=== PATIENT | male | born 1970 | race Caucasian/White ===

== ENCOUNTER 2016-10-05 02:31 | Inpatient (IN) | payer OTHER ==
[~2016-10-05] VITALS: Ht 185.4 cm; Wt 101.2 kg
[2016-10-05] VITALS (22 sets, daily range): BP systolic 94–134; BP diastolic 53–81
[2016-10-05] MEDS ORDERED: FAMOTIDINE 20 MG/2 ML VIAL IVP ONE (03:15)
[2016-10-05] MEDS ORDERED: MORPHINE SULFATE 4 MG/ML DISP.SYRIN. IV ONE (03:15)
[2016-10-05] MEDS ORDERED: IV NORMAL SALINE 1000ML BAG 1,000 ML IV SCH ×4 (03:15→07:51)
[2016-10-05] MEDS ORDERED: ONDANSETRON PF 4 MG/2 ML VIAL. IV ONE (03:15)
--- NOTE | 2016-10-05 03:19 | PHYS DOC ---
Past Medical History Past Medical History: Diabetes-Type II Past Surgical History: Other Additional Past Surgical Histo: LASIC Alcohol Use: Occasionally Drug Use: None Adult General Chief Complaint Chief Complaint: NAUSEA/VOMITING/DIARRHA HPI HPI Patient is a 46 year old male who presents with vomiting, chills, upper abdominal pain. Patient reports symptoms started about 12 hours ago. He says he thinks he his ribs from repeated vomiting (emesis x15 over 12 hrs). He also reports couple episodes of diarrhea as well as chills. He has taken some ibuprofen at home with insufficient relief. No other acute complaints. Review of Systems Review of Systems Constitutional: Chills Eyes: Denies change in visual acuity or eye pain HENT: Denies nasal congestion or sore throat Respiratory: Denies cough or shortness of breath Cardiovascular: Denies chest pain GI: Epigastric abdominal pain, nausea, vomiting, diarrhea. Denies bloody stools : Denies dysuria or hematuria Musculoskeletal: Denies back pain or joint pain Integument: Denies rash or skin lesions Neurologic: Denies headache, focal weakness or sensory changes Current Medications Current Medications Current Medications Medications (Trade) Dose Ordered Sig/Mary Start Time Stop Time Status Last Admin Dose Admin Famotidine (Pepcid) 20 mg 1X ONCE 10/05/16 03:15 10/05/16 03:16 DC 10/05/16 03:22 20 MG Insulin Human Regular 150 unit/ Sodium Chloride 151.5 ml @ 0 mls/hr CONT PRN PRN 10/05/16 04:00 10/05/16 05:29 10.2 MLS/HR Morphine Sulfate 4 mg 4 mg 1X ONCE 10/05/16 03:15 10/05/16 03:16 DC 10/05/16 03:23 4 MG Ondansetron HCl (Zofran) 4 mg 1X ONCE 10/05/16 03:15 10/05/16 03:16 DC 10/05/16 03:22 4 MG Potassium Chloride (KCl Premix 10meq) 100 ml @ 100 mls/hr PRN Q1HR PRN 10/05/16 04:00 Sodium Chloride 1,000 ml @ 1,000 mls/hr Q1H 10/05/16 04:00 10/05/16 04:07 DC 10/05/16 05:28 1,000 MLS/HR Sodium Chloride (Iv Sodium Chloride 0.9% 1000ml Bag) 1,000 ml @ 1,000 mls/hr Q1H 10/05/16 03:15 10/05/16 04:14 DC 10/05/16 03:23 1,000 MLS/HR Allergies Allergies Allergies Coded Allergies Type Severity Reaction Last Updated Verified Sulfa (Sulfonamide Antibiotics) Allergy Unknown 10/05/16 Yes Physical Exam Physical Exam Constitutional: Well developed, well nourished, uncomfortable HENT: Normocephalic, atraumatic, bilateral external ears normal Eyes: EOMI, conjunctiva normal, no discharge Neck: Normal range of motion, no stridor Cardiovascular: Tachycardic, regular rhythm, no murmur Lungs & Thorax: Bilateral breath sounds clear to auscultation Abdomen: Bowel sounds normal, soft, non-distended, epigastric/LUQ TTP without guarding or rebound Skin: Warm, dry, no erythema, no rash Extremities: No obvious deformity, no edema Neurologic: Alert and oriented X 3, no gross deficits noted Current Patient Data Vital Signs Vital Signs Date Time Temp Pulse Resp B/P Pulse Ox O2 Delivery O2 Flow Rate FiO2 10/05/16 04:00 96 99 Room Air 10/05/16 03:30 115/65 10/05/16 03:23 24 10/05/16 02:40 97.7 97.7 Lab Values Laboratory Tests Test 10/05/16 03:22 10/05/16 03:27 POC Venous pH 6.90 (7.32-7.42) L POC Venous pCO2 25mmHg (41-51) L POC Venous pO2 56mmHg (20-40) H Venous Blood HCO3 5mmol/L (24-28) L POC Venous O2 Saturation (Elaina) 66% POC FiO2 21.0 White Blood Count 21.3x10^3/uL (4.0-11.0) H Red Blood Count 4.96x10^6/uL (4.30-5.70) Hemoglobin 15.0g/dL (13.0-17.5) Hematocrit 48.0% (39.0-53.0) Mean Corpuscular Volume 97fL (79-100) Mean Corpuscular Hemoglobin 30pg (25-35) Mean Corpuscular Hemoglobin Concent 31g/dL (31-37) Red Cell Distribution Width 14.5% (11.5-14.5) Platelet Count 286x10^3/uL (140-400) Neutrophils (%) (Auto) 87% (31-73) H Lymphocytes (%) (Auto) 4% (24-48) L Monocytes (%) (Auto) 8% (0-9) Eosinophils (%) (Auto) 0% (0-3) Basophils (%) (Auto) 0% (0-3) Neutrophils # (Auto) 18.6x10^3uL (1.8-7.7) H Lymphocytes # (Auto) 0.9x10^3/uL (1.0-4.8) L Monocytes # (Auto) 1.7x10^3/uL (0.0-1.1) H Eosinophils # (Auto) 0.0x10^3/uL (0.0-0.7) Basophils # (Auto) 0.1x10^3/uL (0.0-0.2) Segmented Neutrophils % 87% (35-66) H Band Neutrophils % 1% (0-9) Lymphocytes % 4% (24-48) L Monocytes % 7% (0-10) Myelocytes % 1% (0-0) H Toxic Granulation Slight Platelet Estimate Adequate (ADEQUATE) Sodium Level 139mmol/L (136-145) Potassium Level 6.9mmol/L (3.5-5.1) *H Chloride Level 99mmol/L (98-107) Carbon Dioxide Level 8mmol/L (21-32) *L Anion Gap 32 (6-14) H Blood Urea Nitrogen 34mg/dL (8-26) H Creatinine 2.2mg/dL (0.7-1.3) H Estimated GFR (Cockcroft-Gault) 32.1 BUN/Creatinine Ratio 15 (6-20) Glucose Level 583mg/dL (70-99) *H Calcium Level 9.9mg/dL (8.5-10.1) Phosphorus Level 9.3mg/dL (2.6-4.7) H Magnesium Level 2.7mg/dL (1.8-2.4) H Total Bilirubin 0.5mg/dL (0.2-1.0) Aspartate Amino Transferase (AST) 26U/L (15-37) Alanine Aminotransferase (ALT) 58U/L (16-63) Alkaline Phosphatase 113U/L (46-116) Total Protein 8.8g/dL (6.4-8.2) H Albumin 4.4g/dL (3.4-5.0) Albumin/Globulin Ratio 1.0 (1.0-1.7) Lipase 1308U/L (73-393) H Laboratory Tests 10/05/16 03:27 Laboratory Tests 10/05/16 03:27 EKG EKG EKG (my read): sinus rhythm, rate 107, borderline LAD, Radiology/Procedures Radiology/Procedures X-ray L ribs and PA chest (my read): No acute abnormality Course & Med Decision Making Course & Med Decision Making Pertinent Labs and Imaging studies reviewed. (See chart for details) Patient is 46-year-old male who presents with epigastric pain, nausea/vomiting. Pain that he believes due to his ribs I believe is actually in his abdomen. Regardless will check x-ray of left ribs and PA chest. Labs ordered to evaluate. IV fluids, nausea medication, pain medication ordered for relief of symptoms. Labs notable for blood glucose 538, bicarb 8, anion gap 32, lipase 1308, potassium 6.9. Additional fluids and insulin drip ordered. Calcium gluconate ordered for hyperkalemia. Discussed with Dr. España, per his recommendation will give dose of kayexelate as well and will recheck BMP in 4 hours. Discussed results with patient. Discussed with Dr. Pickett, will admit under his care for further evaluation and treatment. Critical care time: 35 minutes critical care time spent with this patient. This does not include any time spent on procedures. Dragon Disclaimer Dragon Disclaimer This electronic medical record was generated, in whole or in part, using a voice recognition dictation system. Departure Departure Impression: Primary Impression: DKA (diabetic ketoacidosis) Additional Impressions: Pancreatitis Hyperkalemia Disposition: ADMITTED INPATIENT Admitting Physician: Malorie Pickett Condition: GUARDED Problem Qualifiers ABELARDO PRUITT MD Oct 05, 2016 03:19
[2016-10-05 03:34] LABS: BASO # 0.1 x10^3/uL (0.0-0.2); BASO % 0 % (0-3); EOS % 0 % (0-3); LYMPH # 0.9 x10^3/uL (1.0-4.8); LYMPH % 4 % (24-48); MEAN CORPUSCULAR HEMOGLOBIN 30 pg (25-35); MEAN CORPUSCULAR HGB CONC 31 g/dL (31-37); MEAN CORPUSCULAR VOLUME 97 fL (79-100); MONO % 8 % (0-9); NEUT % 87 % (31-73); PLATELET COUNT 286 x10^3/uL (140-400); RED BLOOD COUNT 4.96 x10^6/uL (4.30-5.70); RED CELL DISTRIBUTION WIDTH 14.5 % (11.5-14.5); WHITE BLOOD COUNT 21.3 x10^3/uL (4.0-11.0)
[2016-10-05 03:49] LABS: ALBUMIN 4.4 g/dL (3.4-5.0); CALCIUM 9.9 mg/dL (8.5-10.1); CREATININE 2.2 mg/dL (0.7-1.3); GFR 32.1; TOTAL BILIRUBIN 0.5 mg/dL (0.2-1.0); TOTAL PROTEIN 8.8 g/dL (6.4-8.2)
[2016-10-05 03:51] LABS: POTASSIUM 6.9 mmol/L (3.5-5.1)
[2016-10-05] MEDS ORDERED: POTASSIUM CHLORIDE 10MEQ 100 ML IV PRN ×3 (04:00)
[2016-10-05] MEDS ORDERED: INSULIN REGULAR VIAL 150 UNIT in 0.9 % SODIUM CHLORIDE 150ML 150 ML IV PRN (04:00)
[2016-10-05] MEDS ORDERED: MORPHINE SULFATE 4 MG/ML DISP.SYRIN. IV PRN (04:15)
[2016-10-05] MEDS ORDERED: ACETAMINOPHEN 325 MG TABLET. PO PRN (04:15)
[2016-10-05] MEDS ORDERED: CALCIUM GLUCONATE 1,000 MG/10 ML VIAL IVP ONE (04:15)
[2016-10-05] MEDS ORDERED: ONDANSETRON PF 4 MG/2 ML VIAL. IV PRN (04:15)
[2016-10-05 04:29] LABS: ISTAT BE VENOUS -28 mmol/L (0-3); ISTAT HCO3 VEN 5 mmol/L (24-28); ISTAT PCO2 VEN 25 mmHg (41-51); ISTAT PO2 VEN 56 mmHg (20-40); ISTAT SAT O2 VEN 66 %; ISTAT TCO2 VEN 6 mmol/L (21-32); TOSPEC VEN
[2016-10-05] MEDS ORDERED: SODIUM POLYSTYRENE SULFONATE 15 GM/60 ML ORAL.SUSP. PO ONE (04:45)
[2016-10-05 05:02] LABS: PLT ESTIMATE ADEQUATE (ADEQUATE); TOXIC GRANULATION SLIGHT
[2016-10-05] MEDS ORDERED: INSU100I13 SQ (05:14)
[2016-10-05] MEDS ORDERED: INSU100I17 SQ (05:20)
[2016-10-05 05:56] LABS: MAGNESIUM 2.8 mg/dL (1.8-2.4); PHOSPHORUS 8.8 mg/dL (2.6-4.7)
[2016-10-05] MEDS ORDERED: SODIUM BICARBONATE VIAL 50 MEQ in IV 1/2 NORMAL SALINE 1,000 ML IV SCH (06:15)
--- NOTE | 2016-10-05 06:19 | EKG ---
[facility] [address] [place] [address] Test Date: 2016-10-05 Test Time: 04:13:13 Pat Name: LESLIE SIDDIQUI Department: Room: 105 1 Gender: M [employer]essionals: : 1970 Requested By: ABELARDO PRUITT Order Number: [id number] Reading MD: Lynda Gray Measurements Intervals [place] Rate: 107 P: 62 MD: 134 QRS: -1 QRSD: 102 T: 61 QT: 338 QTc: 457 Interpretive Statements SINUS TACHYCARDIA LEFTWARD AXIS RI6.01 Unconfirmed report No previous ECG available for comparison Electronically Signed On 10-07-2016 10:48:24 CDT by Lynda Gray
[2016-10-05 07:00] LABS: CREATININE 2.2 mg/dL (0.7-1.3); GFR 32.1
[2016-10-05 07:07] LABS: POTASSIUM 6.8 mmol/L (3.5-5.1)
--- NOTE | 2016-10-05 07:12 | RAD ---
Indication: Left lower rib pain. Technique: Left rib series with PA chest radiograph contains 5 images. No comparison is available. Findings: The lungs are clear. There is no pneumothorax or pleural fluid. Cardiomediastinal silhouette is within normal limits. A displaced rib fracture or osseous lesion is not identified. Impression: Negative for displaced rib fracture.
[2016-10-05] MEDS ORDERED: IV DEXTROSE 5 %-0.45 % NACL 1,000 ML IV SCH (07:51)
[2016-10-05] MEDS ORDERED: IV DEXTROSE 5 %-0.45 % NACL 1,000 ML IV PRN (07:53)
[2016-10-05] MEDS ORDERED: IV 1/2 NORMAL SALINE 1,000 ML IV PRN (08:00)
[2016-10-05] MEDS ORDERED: SODIUM BICARBONATE VIAL 100 MEQ in IV DEXTROSE 5% 1,000 ML IV PRN (09:00)
--- NOTE | 2016-10-05 09:02 | ACF ---
Admission Forms Criteria PANCREATITIS Clinical Indications for Admission to Inpatient Care (Place 'X' for any and all applicable criteria): Admission is indicated for ANY ONE of the following (1)(2)(3)(4): [X]I. Acute pancreatitis[A] as indicated by 2 or more of the following: [X]a) Abdominal pain (eg, epigastric, left upper quadrant) [X]b) Serum amylase or serum lipase greater than 3 times the upper limit of normal [ ]c) Characteristic findings from abdominal imaging (eg, pancreatic inflammation, pancreatic necrosis, peripancreatic fluid collection)[B] [ ]II. Pancreatitis (acute or chronic ) requiring inpatient care as indicated by 1 or more of the following : [ ]a) Inability to maintain oral hydration Hypoxemia [ ]b) Evidence of infection (eg, fever, peripancreatic abscess) [ ]c) Severe pain requiring acute inpatient management [ ]d) Hemodynamic instability [ ]e) Hypoxemia [ ]f) Acute renal failure [ ]g) Severe electrolyte abnormalities Extended stay beyond goal length of stay may be needed for (1)(11) [ ]a) Severe acute pancreatitis (10)(19) [ ]b) Persistent symptoms, ascites, or pleural effusion [ ]c) Abdominal compartment syndrome (10) [ ]d) Late complications [ ]e) Acute renal failure (27) [ ]f) Gallstones in gallbladder The original [employer] content created by [employer] has been revised. The portions of the content which have been revised are identified through the use of italic text or in bold,and [facility] has neither reviewed nor approved the modified material.All other unmodified content is copyright [facility]. Please see references footnoted in the original [email or web address] edition 2016 Admission Criteria Met?: Yes SARAI SIMPSON Oct 05, 2016 09:02
--- NOTE | 2016-10-05 11:06 | HP ---
ADMIT DATE: 10/05/2016 CHIEF COMPLAINT: Nausea and vomiting. HISTORY OF PRESENT ILLNESS: The patient is a 46-year-old gentleman with known history of diabetes mellitus who presented to the Emergency Room in the histology manager hours with 12-hour history of nausea and vomiting. He related that he was feeling poorly yesterday morning, but went out with his son sonia jacome. 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 Over the next 12 hours, he vomited about 15 times, had diarrhea x 2. Denies any fevers or chills, but did develop abdominal pain in the left upper quadrant, which was severe and gave him difficulties breathing. He therefore decided to present to the Emergency Room rather than waiting for the histology manager hours as he initially had intended. Pain currently is much better controlled. Breathing is improved. He denies any sick contacts. Never had symptoms like this before. PAST MEDICAL HISTORY: Diabetes mellitus x 9 years. FAMILY HISTORY: Positive for brother having been diagnosed, one year prior to pt's diagnosis, with DM. SOCIAL HISTORY: , lives by himself, but has two teenage children every other week. Drinks beer 4 times a week socially, 4-8 drinks each time, smokes only occasionally. Denies any drugs. ALLERGIES: SULFA. HOME MEDICATIONS: Reconciled with MAR. REVIEW OF SYSTEMS: Essentially positive as per HPI. He overall feels tired, generalized fatigue, but no focal aches or pains at current time. Rest of organ system review is negative. PHYSICAL EXAMINATION: VITAL SIGNS: Show blood pressure of 108/67, heart rate of 104, respiratory rate at 24. He is afebrile. GENERAL: This is a well-nourished, 46-year-old gentleman, alert and oriented, in no acute distress. HEENT: Shows no scleral icterus. NECK: Supple, without any lymphadenopathy. LUNGS: Clear bilaterally. CARDIOVASCULAR: Heart is regular rate and rhythm. ABDOMEN: Has positive bowel sounds, soft, without any tenderness to palpation. EXTREMITIES: Show no edema. SKIN: Warm, soft and dry without any rash. NEUROLOGIC: He appears grossly intact. LABORATORY DATA: CBC with a WBC of 21.3, 87% neutrophils, 1% band, hemoglobin at 15, platelets at 286. Chemistries at admission with a BUN and creatinine of 34 and 2.2 and 4 hours later at 38 and 2.2. Electrolytes with a sodium of 139; potassium 3.9; bicarbonate at 8, which 4 hours later is essentially unchanged; glucose at admission 583, on insulin drip, now 328; phosphorus at 8.8; magnesium at 2.8. IMAGING DATA: Rib x-rays essentially negative for displaced or broken ribs. ASSESSMENT AND PLAN: The patient is a 46-year-old diabetic who presents with nausea and vomiting, deranged electrolytes, and metabolic acidosis. He has been started on a bicarbonate drip. We will monitor his ABGs and chemistries closely. Renal consult will be obtained. It is unclear if this is secondary to his vomiting, although somewhat incongruent with his hyperkalemia. The patient also has pancreatitis and once again this is unclear if it is a primary or a secondary. DKA is present as well. He will be kept in the ICU. Currently on insulin drip until his gap closes. Pancreatitis at least symptomatically seems to have improved. We will start clear liquids. A Renal consult will be obtained. We will follow closely. NAZANIN GRAHAM MD DR: SHWETA/nts JOB#: [id number] / [id number] BER
--- NOTE | 2016-10-05 11:19 | PDOC2 ---
CONSULT Date of Consult Date of Consult DATE: 10/05/16 TIME: 11:15 Reason for Consult Reason for Consult: CAROLYN Referring Physician Referring Physician: ELIZA Identification/Chief Complaint Chief Complaint ABD PAIN, WEAKNESS Source Source: Chart review, Patient History of Present Illness Reason for Visit: THIS IS A 46 YR OLD ADMITTED WITH WEAKNESS AND ABD PAIN. HE HAS BEEN DX WITH DKA AND PANCREATITIS. HE DOES HAVE HEAVY ETOH INTAKE HX. NO CKD NOTED. HE HAS HAD N/V/D ALONG WITH POLYURIA AND POLYDYPSIA Past Medical History Cardiovascular: HTN GI: Constipation Endocrine: Diabetes Current Problem List Problem List Problems Medical Problems: (1) DKA (diabetic ketoacidosis) Status: Acute (2) Hyperkalemia Status: Acute (3) Pancreatitis Status: Acute Current Medications Current Medications Current Medications Sodium Chloride (Iv Sodium Chloride 0.9% 1000ml Bag) 1,000 ml @ 1,000 mls/hr Q1H IV Last administered on 10/05/16 03:23; Start 10/05/16 at 03:15; Stop at 04:14; Status DC Ondansetron HCl (Zofran) 4 mg 1X ONCE IV Last administered on 10/05/16 03:22 ; Start 10/05/16 at 03:15; Stop 10/05/16 at 03:16; Status DC Famotidine (Pepcid) 20 mg 1X ONCE IVP Last administered on 10/05/16 03:22; Start 10/05/16 at 03:15; Stop 10/05/16 at 03:16; Status DC Morphine Sulfate 4 mg 1X ONCE IV Last administered on 10/05/16 03:23; Start 10/05/16 at 03:15; Stop 10/05/16 at 03:16; Status DC Calcium Gluconate 1000 mg 1,000 mg 1X ONCE IVP ; Start 10/05/16 at 04:15; Stop 10/05/16 at 05:44; Status DC Sodium Chloride 1,000 ml @ 1,000 mls/hr Q1H IV Last administered on 10/05/16 05:28; Start 10/05/16 at 04:00; Stop 10/05/16 at 04:07; Status DC Insulin Human Regular 150 unit/ Sodium Chloride 151.5 ml @ 0 mls/hr CONT PRN PRN IV PER PROTOCOL Last administered on 10/05/16 05:29; Start 10/05/16 at 04: 00 Potassium Chloride 100 ml @ 100 mls/hr PRN Q1HR PRN IV SEE COMMENTS; Start at 04:00 Potassium Chloride 100 ml @ 100 mls/hr PRN Q1HR PRN IV SEE COMMENTS; Start at 04:00 Potassium Chloride (KCl Premix 10meq) 100 ml @ 100 mls/hr PRN Q1HR PRN IV SEE COMMENTS; Start 10/05/16 at 04:00 Sodium Polystyrene Sulfonate (Kayexalate) 15 gm 1X ONCE PO ; Start 10/05/16 at 04:45; Stop 10/05/16 at 05:44; Status DC Ondansetron HCl (Zofran) 4 mg PRN Q8HRS PRN IV NAUSEA/VOMITING; Start 10/05/16 at 04:15; Stop 10/06/16 at 04:14 Morphine Sulfate 4 mg 4 mg PRN Q2HR PRN IV PAIN Last administered on 10/05/16 05:27; Start 10/05/16 at 04:15; Stop 10/06/16 at 04:14 Sodium Chloride (Iv Sodium Chloride 0.9% 1000ml Bag) 1,000 ml @ 250 mls/hr Q4H IV ; Start 10/05/16 at 04:30; Stop 10/05/16 at 06:02; Status DC Acetaminophen 650 mg 650 mg PRN Q4HRS PRN PO FEVER; Start 10/05/16 at 04:15; Stop 10/06/16 at 04:14 Sodium Bicarbonate 50 meq/Sodium Chloride 1,050 ml @ 250 mls/hr Q4H12M IV Last administered on 10/05/16 06:15; Start 10/05/16 at 06:15; Stop 10/05/16 at 09:01; Status DC Sodium Chloride 1,000 ml @ 250 mls/hr Q4H IV ; Start 10/05/16 at 07:51 Sodium Chloride 1,000 ml @ 250 mls/hr Q4H PRN IV SEE COMMENTS; Start 10/05/16 at 08:00 Dextrose/Sodium Chloride 1,000 ml @ 250 mls/hr Q4H IV ; Start 10/05/16 at 07:51 ; Stop 10/05/16 at 07:54; Status DC Dextrose/Sodium Chloride 1,000 ml @ 250 mls/hr Q4H PRN IV SEE COMMENTS; Start 10/05/16 at 07:53 Sodium Bicarbonate/ Dextrose 1,100 ml @ 250 mls/hr CONT PRN IV .; Start at 09:00 Active Scripts Active Reported Novolog Flexpen (Insulin Aspart) 100 Unit/1 Ml Insuln.pen 1 Unit SQ PRN BFRMEAL PRN Lantus Solostar (Insulin Glargine,Hum.rec.anlog) 100 Unit/1 Ml Insuln.pen 38 Unit SQ QHS Allergies Allergies: Coded Allergies: Sulfa (Sulfonamide Antibiotics) (Verified Allergy, Unknown, 10/05/16) ROS General: YES: Appetite, Fatigue, Malaise PSYCHOLOGICAL ROS: YES: Anxiety, Depression Eyes: Yes Decreased vision HEENT: YES: Heacaches Respiratory: YES: Cough Gastrointestinal: Yes Diarrhea, Yes Nausea, Yes Vomiting Genitourinary: YES Frequency Musculoskeletal: Yes Muscular Weakness Neurological: Yes Weakness Skin: Yes Dry Skin Physical Exam General: Alert, Oriented X3, Cooperative, No acute distress HEENT: Atraumatic, PERRLA, Other (DRY MUCOSA) Lungs: Clear to auscultation Heart: Regular rate, Normal S1, Normal S2 Abdomen: Normal bowel sounds, Soft Extremities: No clubbing, No cyanosis Skin: No rashes, No breakdown Neuro: Normal speech, Cranial nerves 3-12 NL Psych/Mental Status: Mental status NL, Mood NL MUSCULOSKELETAL: No deformity, No swelling Vitals VITALS Vital Signs Date Time Temp Pulse Resp B/P Pulse Ox O2 Delivery O2 Flow Rate FiO2 10/05/16 09:00 106 118/61 100 Room Air 10/05/16 08:00 97.7 24 97.7 Labs Labs Laboratory Tests Test 10/05/16 03:22 10/05/16 03:27 10/05/16 04:47 10/05/16 05:15 Bedside Venous pH 6.90 (7.32-7.42) Bedside Venous pCO2 25mmHg (41-51) Bedside Venous pO2 56mmHg (20-40) Venous Blood HCO3 5mmol/L (24-28) POC Venous O2 Saturation (Elaina) 66% Bedside FiO2 21.0 White Blood Count 21.3x10^3/uL (4.0-11.0) Red Blood Count 4.96x10^6/uL (4.30-5.70) Hemoglobin 15.0g/dL (13.0-17.5) Hematocrit 48.0% (39.0-53.0) Mean Corpuscular Volume 97fL (79-100) Mean Corpuscular Hemoglobin 30pg (25-35) Mean Corpuscular Hemoglobin Concent 31g/dL (31-37) Red Cell Distribution Width 14.5% (11.5-14.5) Platelet Count 286x10^3/uL (140-400) Neutrophils (%) (Auto) 87% (31-73) Lymphocytes (%) (Auto) 4% (24-48) Monocytes (%) (Auto) 8% (0-9) Eosinophils (%) (Auto) 0% (0-3) Basophils (%) (Auto) 0% (0-3) Neutrophils # (Auto) 18.6x10^3uL (1.8-7.7) Lymphocytes # (Auto) 0.9x10^3/uL (1.0-4.8) Monocytes # (Auto) 1.7x10^3/uL (0.0-1.1) Eosinophils # (Auto) 0.0x10^3/uL (0.0-0.7) Basophils # (Auto) 0.1x10^3/uL (0.0-0.2) Segmented Neutrophils % 87% (35-66) Band Neutrophils % 1% (0-9) Lymphocytes % 4% (24-48) Monocytes % 7% (0-10) Myelocytes % 1% (0-0) Toxic Granulation Slight Platelet Estimate Adequate (ADEQUATE) Sodium Level 139mmol/L (136-145) Potassium Level 6.9mmol/L (3.5-5.1) Chloride Level 99mmol/L (98-107) Carbon Dioxide Level 8mmol/L (21-32) Anion Gap 32 (6-14) Blood Urea Nitrogen 34mg/dL (8-26) Creatinine 2.2mg/dL (0.7-1.3) Estimated GFR (Cockcroft-Gault) 32.1 BUN/Creatinine Ratio 15 (6-20) Glucose Level 583mg/dL (70-99) Calcium Level 9.9mg/dL (8.5-10.1) Phosphorus Level 9.3mg/dL (2.6-4.7) 8.8mg/dL (2.6-4.7) Magnesium Level 2.7mg/dL (1.8-2.4) 2.8mg/dL (1.8-2.4) Total Bilirubin 0.5mg/dL (0.2-1.0) Aspartate Amino Transf (AST/SGOT) 26U/L (15-37) Alanine Aminotransferase (ALT/SGPT) 58U/L (16-63) Alkaline Phosphatase 113U/L (46-116) Total Protein 8.8g/dL (6.4-8.2) Albumin 4.4g/dL (3.4-5.0) Albumin/Globulin Ratio 1.0 (1.0-1.7) Lipase 1308U/L (73-393) Glucose (Fingerstick) 569mg/dL (70-99) Test 10/05/16 05:56 10/05/16 06:35 10/05/16 06:57 10/05/16 08:45 Glucose (Fingerstick) 534mg/dL (70-99) 424mg/dL (70-99) 328mg/dL (70-99) Sodium Level 140mmol/L (136-145) Potassium Level 6.8mmol/L (3.5-5.1) Chloride Level 104mmol/L (98-107) Carbon Dioxide Level 6mmol/L (21-32) Anion Gap 30 (6-14) Blood Urea Nitrogen 38mg/dL (8-26) Creatinine 2.2mg/dL (0.7-1.3) Estimated GFR (Cockcroft-Gault) 32.1 Glucose Level 507mg/dL (70-99) Calcium Level 9.0mg/dL (8.5-10.1) Test 10/05/16 09:49 10/05/16 10:52 Glucose (Fingerstick) 258mg/dL (70-99) 215mg/dL (70-99) Laboratory Tests Test 10/05/16 03:22 10/05/16 03:27 10/05/16 04:47 10/05/16 05:15 Bedside Venous pH 6.90 (7.32-7.42) Bedside Venous pCO2 25mmHg (41-51) Bedside Venous pO2 56mmHg (20-40) Venous Blood HCO3 5mmol/L (24-28) POC Venous O2 Saturation (Elaina) 66% Bedside FiO2 21.0 White Blood Count 21.3x10^3/uL (4.0-11.0) Red Blood Count 4.96x10^6/uL (4.30-5.70) Hemoglobin 15.0g/dL (13.0-17.5) Hematocrit 48.0% (39.0-53.0) Mean Corpuscular Volume 97fL (79-100) Mean Corpuscular Hemoglobin 30pg (25-35) Mean Corpuscular Hemoglobin Concent 31g/dL (31-37) Red Cell Distribution Width 14.5% (11.5-14.5) Platelet Count 286x10^3/uL (140-400) Neutrophils (%) (Auto) 87% (31-73) Lymphocytes (%) (Auto) 4% (24-48) Monocytes (%) (Auto) 8% (0-9) Eosinophils (%) (Auto) 0% (0-3) Basophils (%) (Auto) 0% (0-3) Neutrophils # (Auto) 18.6x10^3uL (1.8-7.7) Lymphocytes # (Auto) 0.9x10^3/uL (1.0-4.8) Monocytes # (Auto) 1.7x10^3/uL (0.0-1.1) Eosinophils # (Auto) 0.0x10^3/uL (0.0-0.7) Basophils # (Auto) 0.1x10^3/uL (0.0-0.2) Segmented Neutrophils % 87% (35-66) Band Neutrophils % 1% (0-9) Lymphocytes % 4% (24-48) Monocytes % 7% (0-10) Myelocytes % 1% (0-0) Toxic Granulation Slight Platelet Estimate Adequate (ADEQUATE) Sodium Level 139mmol/L (136-145) Potassium Level 6.9mmol/L (3.5-5.1) Chloride Level 99mmol/L (98-107) Carbon Dioxide Level 8mmol/L (21-32) Anion Gap 32 (6-14) Blood Urea Nitrogen 34mg/dL (8-26) Creatinine 2.2mg/dL (0.7-1.3) Estimated GFR (Cockcroft-Gault) 32.1 BUN/Creatinine Ratio 15 (6-20) Glucose Level 583mg/dL (70-99) Calcium Level 9.9mg/dL (8.5-10.1) Phosphorus Level 9.3mg/dL (2.6-4.7) 8.8mg/dL (2.6-4.7) Magnesium Level 2.7mg/dL (1.8-2.4) 2.8mg/dL (1.8-2.4) Total Bilirubin 0.5mg/dL (0.2-1.0) Aspartate Amino Transf (AST/SGOT) 26U/L (15-37) Alanine Aminotransferase (ALT/SGPT) 58U/L (16-63) Alkaline Phosphatase 113U/L (46-116) Total Protein 8.8g/dL (6.4-8.2) Albumin 4.4g/dL (3.4-5.0) Albumin/Globulin Ratio 1.0 (1.0-1.7) Lipase 1308U/L (73-393) Glucose (Fingerstick) 569mg/dL (70-99) Test 10/05/16 05:56 10/05/16 06:35 10/05/16 06:57 10/05/16 08:45 Glucose (Fingerstick) 534mg/dL (70-99) 424mg/dL (70-99) 328mg/dL (70-99) Sodium Level 140mmol/L (136-145) Potassium Level 6.8mmol/L (3.5-5.1) Chloride Level 104mmol/L (98-107) Carbon Dioxide Level 6mmol/L (21-32) Anion Gap 30 (6-14) Blood Urea Nitrogen 38mg/dL (8-26) Creatinine 2.2mg/dL (0.7-1.3) Estimated GFR (Cockcroft-Gault) 32.1 Glucose Level 507mg/dL (70-99) Calcium Level 9.0mg/dL (8.5-10.1) Test 10/05/16 09:49 10/05/16 10:52 Glucose (Fingerstick) 258mg/dL (70-99) 215mg/dL (70-99) Assessment/Plan Assessment/Plan IMP CAROLYN DEHYDRATION HYPERKALEMIA DKA MET ACIDOSIS PLAN VOLUME EXPAND DKA PROTOCOL WILL FOLLOW KOKI CASPER MD Oct 05, 2016 11:19
[2016-10-05 11:26] LABS: HCO3 ABG 8 mmol/L (21-28); PH ABG 7.26 (7.35-7.45); PO2 ABG 102 mmHg (75-108); SAT O2 ABG 98 % (92-99)
[2016-10-05 11:31] LABS: FIO2 ABG 21; PCO2 ABG 17 mmHg (35-46)
[2016-10-05 12:51] LABS: CALCIUM 8.5 mg/dL (8.5-10.1); CREATININE 1.7 mg/dL (0.7-1.3); GFR 43.2; MAGNESIUM 2.4 mg/dL (1.8-2.4); PHOSPHORUS 2.2 mg/dL (2.6-4.7); POTASSIUM 4.6 mmol/L (3.5-5.1)
[2016-10-05 16:21] LABS: CREATININE 1.6 mg/dL (0.7-1.3); GFR 46.4; MAGNESIUM 1.8 mg/dL (1.8-2.4); PHOSPHORUS 1.1 mg/dL (2.6-4.7); POTASSIUM 3.7 mmol/L (3.5-5.1)
[2016-10-05] MEDS ORDERED: DEXTROSE 50% 25 GM / 50ML DISP.SYRIN. IV PRN (17:30)
[2016-10-05] MEDS: INSULIN ASPART 300 UNITS/3 ML INSULN.PEN SQ SCH (17:48)
[2016-10-05] MEDS ORDERED: SODIUM PHOSPHATE 20 MMOL in IV DEXTROSE 5% 250 ML IV PRN (18:00)
[2016-10-05] MEDS ORDERED: IV DEXTROSE 5% - 0.9 % NACL 1,000 ML IV PRN (18:00)
[2016-10-05] MEDS ORDERED: SODIUM PHOSPHATE 20 MMOL in IV DEXTROSE 5% 250 ML IV ONE (18:00)
[2016-10-05 20:33] LABS: CREATININE 1.5 mg/dL (0.7-1.3); GFR 49.9; MAGNESIUM 1.9 mg/dL (1.8-2.4); PHOSPHORUS 2.6 mg/dL (2.6-4.7); POTASSIUM 4.2 mmol/L (3.5-5.1)
[2016-10-05] MEDS: INSULIN DETEMIR 300 UNITS/3 ML INSULN.PEN. SQ SCH (20:38)
[2016-10-06] VITALS (18 sets, daily range): BP systolic 99–144; BP diastolic 51–88
[2016-10-06 01:02] LABS: CALCIUM 8.2 mg/dL (8.5-10.1); CREATININE 1.4 mg/dL (0.7-1.3); GFR 54.1; PHOSPHORUS 2.6 mg/dL (2.6-4.7); POTASSIUM 4.2 mmol/L (3.5-5.1)
--- NOTE | 2016-10-06 09:12 | PDOC ---
PROGRESS NOTES Chief Complaint Chief Complaint N/V DKA Pancreatitis ASSESSMENT AND PLAN: 1. DKA: resolved 2. DM: currently poorly controlled. titrate levemir and short-acting insulin. awaiting HgbA1c; pt admits to nonadherence to regimen 3. Pancreatitis: 4. CAROLYN: improving 5. Hyperkalemia: resolved 6. Metabolic acidosis: much improved. 7. EtOH abuse: monitor for W/D sx; drinks on alternating weeks 8. Prophylaxis: lovenox, PPI 9. Dispo: transfer to [facility] floor Vitals Vitals Vital Signs Date Time Temp Pulse Resp B/P Pulse Ox O2 Delivery O2 Flow Rate FiO2 10/06/16 08:00 99.0 84 16 114/65 100 Room Air 99.0 Physical Exam General: Alert, Oriented X3, Cooperative, No acute distress Heart: Regular rate, Normal S1, Normal S2 Abdomen: Normal bowel sounds, Soft Extremities: No clubbing, No cyanosis Skin: No rashes, No breakdown Labs LABS Laboratory Tests Test 10/05/16 09:49 10/05/16 10:52 10/05/16 11:00 10/05/16 11:30 Glucose (Fingerstick) 258mg/dL (70-99) 215mg/dL (70-99) O2 Saturation 98% (92-99) Arterial Blood pH 7.26 (7.35-7.45) Arterial Blood pCO2 at Patient Temp 17mmHg (35-46) Arterial Blood pO2 at Patient Temp 102mmHg (75-108) Arterial Blood HCO3 8mmol/L (21-28) Arterial Blood Base Excess -17mmol/L (-3-3) FiO2 21 Sodium Level 137mmol/L (136-145) Potassium Level 4.6mmol/L (3.5-5.1) Chloride Level 102mmol/L (98-107) Carbon Dioxide Level 12mmol/L (21-32) Anion Gap 23 (6-14) Blood Urea Nitrogen 32mg/dL (8-26) Creatinine 1.7mg/dL (0.7-1.3) Estimated GFR (Cockcroft-Gault) 43.2 Glucose Level 196mg/dL (70-99) Calcium Level 8.5mg/dL (8.5-10.1) Phosphorus Level 2.2mg/dL (2.6-4.7) Magnesium Level 2.4mg/dL (1.8-2.4) Test 10/05/16 13:00 10/05/16 14:06 10/05/16 15:10 10/05/16 15:46 Glucose (Fingerstick) 274mg/dL (70-99) 287mg/dL (70-99) 220mg/dL (70-99) Sodium Level 135mmol/L (136-145) Potassium Level 3.7mmol/L (3.5-5.1) Chloride Level 105mmol/L (98-107) Carbon Dioxide Level 17mmol/L (21-32) Anion Gap 13 (6-14) Blood Urea Nitrogen 26mg/dL (8-26) Creatinine 1.6mg/dL (0.7-1.3) Estimated GFR (Cockcroft-Gault) 46.4 Glucose Level 232mg/dL (70-99) Calcium Level 8.0mg/dL (8.5-10.1) Phosphorus Level 1.1mg/dL (2.6-4.7) Magnesium Level 1.8mg/dL (1.8-2.4) Test 10/05/16 16:15 10/05/16 17:24 10/05/16 18:27 10/05/16 20:00 Glucose (Fingerstick) 186mg/dL (70-99) 156mg/dL (70-99) 127mg/dL (70-99) Sodium Level 135mmol/L (136-145) Potassium Level 4.2mmol/L (3.5-5.1) Chloride Level 106mmol/L (98-107) Carbon Dioxide Level 19mmol/L (21-32) Anion Gap 10 (6-14) Blood Urea Nitrogen 23mg/dL (8-26) Creatinine 1.5mg/dL (0.7-1.3) Estimated GFR (Cockcroft-Gault) 49.9 Glucose Level 252mg/dL (70-99) Calcium Level 8.0mg/dL (8.5-10.1) Phosphorus Level 2.6mg/dL (2.6-4.7) Magnesium Level 1.9mg/dL (1.8-2.4) Test 10/05/16 20:34 10/06/16 00:20 10/06/16 08:13 Glucose (Fingerstick) 259mg/dL (70-99) 237mg/dL (70-99) Sodium Level 138mmol/L (136-145) Potassium Level 4.2mmol/L (3.5-5.1) Chloride Level 106mmol/L (98-107) Carbon Dioxide Level 20mmol/L (21-32) Anion Gap 12 (6-14) Blood Urea Nitrogen 21mg/dL (8-26) Creatinine 1.4mg/dL (0.7-1.3) Estimated GFR (Cockcroft-Gault) 54.1 Glucose Level 272mg/dL (70-99) Calcium Level 8.2mg/dL (8.5-10.1) Phosphorus Level 2.6mg/dL (2.6-4.7) Magnesium Level 2.0mg/dL (1.8-2.4) Review of Systems Review of Systems feels much better. no pain, no N/V NAZANIN GRAHAM MD Oct 06, 2016 09:12
[2016-10-06 09:24] LABS: BASO % 0 % (0-3); EOS % 0 % (0-3); HEMATOCRIT 35.6 % (39.0-53.0); LYMPH # 1.4 x10^3/uL (1.0-4.8); LYMPH % 15 % (24-48); MEAN CORPUSCULAR HEMOGLOBIN 30 pg (25-35); MEAN CORPUSCULAR HGB CONC 34 g/dL (31-37); MONO % 8 % (0-9); NEUT % 76 % (31-73); PLATELET COUNT 162 x10^3/uL (140-400); RED BLOOD COUNT 3.96 x10^6/uL (4.30-5.70); RED CELL DISTRIBUTION WIDTH 13.4 % (11.5-14.5)
[2016-10-06 09:29] LABS: MAGNESIUM 2.4 mg/dL (1.8-2.4); PHOSPHORUS 1.4 mg/dL (2.6-4.7)
[2016-10-06 09:33] LABS: CALCIUM 8.6 mg/dL (8.5-10.1); CREATININE 1.2 mg/dL (0.7-1.3); GFR 64.6; POTASSIUM 3.9 mmol/L (3.5-5.1)
[2016-10-06 09:38] LABS: ALBUMIN 2.9 g/dL (3.4-5.0); ALBUMIN/GLOBULIN RATIO 0.9 (1.0-1.7); TOTAL BILIRUBIN 0.7 mg/dL (0.2-1.0); TOTAL PROTEIN 6.2 g/dL (6.4-8.2)
[2016-10-06 10:04] LABS: MEAN CORPUSCULAR VOLUME 90 fL (79-100)
[2016-10-06] MEDS: PANTOPRAZOLE 40 MG TABLET. PO SCH (10:58)
[2016-10-06] MEDS: INSULIN ASPART 300 UNITS/3 ML INSULN.PEN SQ SCH ×3 (11:03→17:35)
--- NOTE | 2016-10-06 11:22 | PDOC ---
Renal-Progress Notes Subjective Notes Notes NONE History of Present Illness Hx of present illness NO CHANGE Vitals Vitals Vital Signs Date Time Temp Pulse Resp B/P Pulse Ox O2 Delivery O2 Flow Rate FiO2 10/06/16 10:00 78 20 133/71 100 Room Air 10/06/16 08:00 99.0 99.0 Weight Weight [ ] I.O. Intake and Output Intake and Output 10/06/16 07:00 Intake Total 8164 ml Output Total 4800 ml Balance 3364 ml Intake Oral 1920 ml IV Total 6244 ml Output Urine Total 4800 ml Labs Labs Laboratory Tests Test 10/05/16 11:30 10/05/16 13:00 10/05/16 14:06 10/05/16 15:10 Sodium Level 137mmol/L (136-145) Potassium Level 4.6mmol/L (3.5-5.1) Chloride Level 102mmol/L (98-107) Carbon Dioxide Level 12mmol/L (21-32) Anion Gap 23 (6-14) Blood Urea Nitrogen 32mg/dL (8-26) Creatinine 1.7mg/dL (0.7-1.3) Estimated GFR (Cockcroft-Gault) 43.2 Glucose Level 196mg/dL (70-99) Calcium Level 8.5mg/dL (8.5-10.1) Phosphorus Level 2.2mg/dL (2.6-4.7) Magnesium Level 2.4mg/dL (1.8-2.4) Glucose (Fingerstick) 274mg/dL (70-99) 287mg/dL (70-99) 220mg/dL (70-99) Test 10/05/16 15:46 10/05/16 16:15 10/05/16 17:24 10/05/16 18:27 Sodium Level 135mmol/L (136-145) Potassium Level 3.7mmol/L (3.5-5.1) Chloride Level 105mmol/L (98-107) Carbon Dioxide Level 17mmol/L (21-32) Anion Gap 13 (6-14) Blood Urea Nitrogen 26mg/dL (8-26) Creatinine 1.6mg/dL (0.7-1.3) Estimated GFR (Cockcroft-Gault) 46.4 Glucose Level 232mg/dL (70-99) Calcium Level 8.0mg/dL (8.5-10.1) Phosphorus Level 1.1mg/dL (2.6-4.7) Magnesium Level 1.8mg/dL (1.8-2.4) Glucose (Fingerstick) 186mg/dL (70-99) 156mg/dL (70-99) 127mg/dL (70-99) Test 10/05/16 20:00 10/05/16 20:34 10/06/16 00:20 10/06/16 08:13 Sodium Level 135mmol/L (136-145) 138mmol/L (136-145) Potassium Level 4.2mmol/L (3.5-5.1) 4.2mmol/L (3.5-5.1) Chloride Level 106mmol/L (98-107) 106mmol/L (98-107) Carbon Dioxide Level 19mmol/L (21-32) 20mmol/L (21-32) Anion Gap 10 (6-14) 12 (6-14) Blood Urea Nitrogen 23mg/dL (8-26) 21mg/dL (8-26) Creatinine 1.5mg/dL (0.7-1.3) 1.4mg/dL (0.7-1.3) Estimated GFR (Cockcroft-Gault) 49.9 54.1 Glucose Level 252mg/dL (70-99) 272mg/dL (70-99) Calcium Level 8.0mg/dL (8.5-10.1) 8.2mg/dL (8.5-10.1) Phosphorus Level 2.6mg/dL (2.6-4.7) 2.6mg/dL (2.6-4.7) Magnesium Level 1.9mg/dL (1.8-2.4) 2.0mg/dL (1.8-2.4) Glucose (Fingerstick) 259mg/dL (70-99) 237mg/dL (70-99) Test 10/06/16 08:45 White Blood Count 9.0x10^3/uL (4.0-11.0) Red Blood Count 3.96x10^6/uL (4.30-5.70) Hemoglobin 12.0g/dL (13.0-17.5) Hematocrit 35.6% (39.0-53.0) Mean Corpuscular Volume 90fL (79-100) Mean Corpuscular Hemoglobin 30pg (25-35) Mean Corpuscular Hemoglobin Concent 34g/dL (31-37) Red Cell Distribution Width 13.4% (11.5-14.5) Platelet Count 162x10^3/uL (140-400) Neutrophils (%) (Auto) 76% (31-73) Lymphocytes (%) (Auto) 15% (24-48) Monocytes (%) (Auto) 8% (0-9) Eosinophils (%) (Auto) 0% (0-3) Basophils (%) (Auto) 0% (0-3) Neutrophils # (Auto) 6.9x10^3uL (1.8-7.7) Lymphocytes # (Auto) 1.4x10^3/uL (1.0-4.8) Monocytes # (Auto) 0.7x10^3/uL (0.0-1.1) Eosinophils # (Auto) 0.0x10^3/uL (0.0-0.7) Basophils # (Auto) 0.0x10^3/uL (0.0-0.2) Sodium Level 140mmol/L (136-145) Potassium Level 3.9mmol/L (3.5-5.1) Chloride Level 106mmol/L (98-107) Carbon Dioxide Level 24mmol/L (21-32) Anion Gap 10 (6-14) Blood Urea Nitrogen 16mg/dL (8-26) Creatinine 1.2mg/dL (0.7-1.3) Estimated GFR (Cockcroft-Gault) 64.6 BUN/Creatinine Ratio 13 (6-20) Glucose Level 275mg/dL (70-99) Calcium Level 8.6mg/dL (8.5-10.1) Phosphorus Level 1.4mg/dL (2.6-4.7) Magnesium Level 2.4mg/dL (1.8-2.4) Total Bilirubin 0.7mg/dL (0.2-1.0) Aspartate Amino Transf (AST/SGOT) 27U/L (15-37) Alanine Aminotransferase (ALT/SGPT) 38U/L (16-63) Alkaline Phosphatase 69U/L (46-116) Total Protein 6.2g/dL (6.4-8.2) Albumin 2.9g/dL (3.4-5.0) Albumin/Globulin Ratio 0.9 (1.0-1.7) Lipase 199U/L (73-393) Review of Systems Constitutional: yes: alert, no symptom reported, weakness Ears/Nose/Throat: Yes: no symptom reported Eyes: Yes: no symptom reported Pulmonary: Yes no symptom reported Cardiovascular: Yes no symptom reported Musculoskeletal: Yes: no symptom reported Psychiatric/Neurological: Yes: no symptom reported Physical Exam General Appearance: no apparent distress Skin: warm Respiratory: bilateral CTA Heart: S1S2 Abdomen: soft, bowel sounds present Genitourinary: bladder flat Extremities: pulses present Neurology: alert Assessment Assessment IMP CAROLYN-RESOLVING HYPERKALEMIA-RESOLVED HYPOPHOSPHATEMIA DKA-BETTER PLAN IVF'S REPLACE PO4 WILL FOLLOW NEEDED KOKI CASPER MD Oct 06, 2016 11:22
[2016-10-06] MEDS: POTASSIUM PHOSPHATE DIBASIC 13.6 MMOL in IV NORMAL SALINE 100ML 100 ML IV SCH ×2 (12:27→15:04)
[2016-10-06] MEDS: IV 1/2 NORMAL SALINE 1,000 ML IV SCH (15:05)
[2016-10-06] MEDS ORDERED: ENOXAPARIN 40 MG/0.4 ML SYRINGE. SQ SCH (16:00)
[2016-10-06] MEDS: INSULIN DETEMIR 300 UNITS/3 ML INSULN.PEN. SQ SCH (20:24)
[2016-10-07] MEDS: IV 1/2 NORMAL SALINE 1,000 ML IV SCH (04:00)
[2016-10-07 06:11] LABS: CALCIUM 8.5 mg/dL (8.5-10.1); CREATININE 0.9 mg/dL (0.7-1.3); GFR 90.1; MAGNESIUM 2.2 mg/dL (1.8-2.4); PHOSPHORUS 2.5 mg/dL (2.6-4.7); POTASSIUM 3.5 mmol/L (3.5-5.1)
[2016-10-07 08:53] VITALS: BP 134/78
[2016-10-07] MEDS: PANTOPRAZOLE 40 MG TABLET. PO SCH (09:07)
[2016-10-07] MEDS: INSULIN ASPART 300 UNITS/3 ML INSULN.PEN SQ SCH ×2 (09:13→11:57)
[2016-10-07 11:00] VITALS: BP 124/83
--- NOTE | 2016-10-07 11:08 | PDOC ---
Renal-Progress Notes Subjective Notes Notes NONE History of Present Illness Hx of present illness NO CHANGE Vitals Vitals Vital Signs Date Time Temp Pulse Resp B/P Pulse Ox O2 Delivery O2 Flow Rate FiO2 10/07/16 08:53 97.5 61 16 134/78 97 Room Air 97.5 Weight Weight [ ] I.O. Intake and Output Intake and Output 10/07/16 07:00 Intake Total 1670 ml Output Total 1300 ml Balance 370 ml Intake Oral 1670 ml Output Urine Total 1300 ml # Voids 1 Labs Labs Laboratory Tests Test 10/06/16 11:59 10/06/16 17:27 10/06/16 20:20 10/07/16 05:05 Glucose (Fingerstick) 277mg/dL (70-99) 203mg/dL (70-99) 337mg/dL (70-99) Sodium Level 144mmol/L (136-145) Potassium Level 3.5mmol/L (3.5-5.1) Chloride Level 110mmol/L (98-107) Carbon Dioxide Level 28mmol/L (21-32) Anion Gap 6 (6-14) Blood Urea Nitrogen 13mg/dL (8-26) Creatinine 0.9mg/dL (0.7-1.3) Estimated GFR (Cockcroft-Gault) 90.1 Glucose Level 196mg/dL (70-99) Calcium Level 8.5mg/dL (8.5-10.1) Phosphorus Level 2.5mg/dL (2.6-4.7) Magnesium Level 2.2mg/dL (1.8-2.4) Review of Systems Constitutional: yes: alert, no symptom reported, weakness Ears/Nose/Throat: Yes: no symptom reported Eyes: Yes: no symptom reported Pulmonary: Yes no symptom reported Cardiovascular: Yes no symptom reported Musculoskeletal: Yes: no symptom reported Psychiatric/Neurological: Yes: no symptom reported Physical Exam General Appearance: no apparent distress Skin: warm Respiratory: bilateral CTA Heart: S1S2 Abdomen: soft, bowel sounds present Genitourinary: bladder flat Extremities: pulses present Neurology: alert Assessment Assessment IMP CAROLYN-RESOLVED HYPERKALEMIA-RESOLVED HYPOPHOSPHATEMIA-BETTER DKA-RESOLVED PLAN REPLACE PO4 PER PROTOCOL WILL SIGN OFF KOKI CASPER MD Oct 07, 2016 11:08
--- NOTE | 2016-10-07 12:52 | PDOC ---
PROGRESS NOTES Chief Complaint Chief Complaint Nausea and vomiting DKA, resolved - Pancreatitis, resolved - hyperkalemia, resolved - DM History of Present Illness History of Present Illness Patient with no acute events overnight, and no new complaints. States he is feeling well and is ready for discharge. Has been eating and reports no pain. Denies nausea, vomiting. Labs have improved. Vitals Vitals Vital Signs Date Time Temp Pulse Resp B/P Pulse Ox O2 Delivery O2 Flow Rate FiO2 10/07/16 11:00 97.8 60 16 124/83 98 Room Air 97.8 Physical Exam General: Alert, Cooperative, No acute distress Heart: Regular rate, Normal S1, Normal S2 Lungs: Clear Abdomen: Normal bowel sounds, Soft Extremities: No clubbing, No cyanosis Skin: No rashes, No breakdown Labs LABS Laboratory Tests Test 10/06/16 17:27 10/06/16 20:20 10/07/16 05:05 Glucose (Fingerstick) 203mg/dL (70-99) 337mg/dL (70-99) Sodium Level 144mmol/L (136-145) Potassium Level 3.5mmol/L (3.5-5.1) Chloride Level 110mmol/L (98-107) Carbon Dioxide Level 28mmol/L (21-32) Anion Gap 6 (6-14) Blood Urea Nitrogen 13mg/dL (8-26) Creatinine 0.9mg/dL (0.7-1.3) Estimated GFR (Cockcroft-Gault) 90.1 Glucose Level 196mg/dL (70-99) Calcium Level 8.5mg/dL (8.5-10.1) Phosphorus Level 2.5mg/dL (2.6-4.7) Magnesium Level 2.2mg/dL (1.8-2.4) Review of Systems Review of Systems denies fever, chills denies nausea, vomiting denies abdominal pain Assessment and Plan Assessmemt and Plan ASSESSMENT: - DKA, resolved - Pancreatitis, resolved - hyperkalemia, resolved - DM1 - CAROLYN, resolved - EtOH abuse PLAN: - discharge today if cleared by subspecialists - Phosphorous improved with replacement - cont IVF if not discharged - repeat labs if not discharged - PTOT if not discharged Problems: Comment Review of Relevant I have reviewed the following items aye (where applicable) has been applied. Labs Laboratory Tests Test 10/05/16 13:00 10/05/16 14:06 10/05/16 15:10 10/05/16 15:46 Glucose (Fingerstick) 274mg/dL (70-99) 287mg/dL (70-99) 220mg/dL (70-99) Sodium Level 135mmol/L (136-145) Potassium Level 3.7mmol/L (3.5-5.1) Chloride Level 105mmol/L (98-107) Carbon Dioxide Level 17mmol/L (21-32) Anion Gap 13 (6-14) Blood Urea Nitrogen 26mg/dL (8-26) Creatinine 1.6mg/dL (0.7-1.3) Estimated GFR (Cockcroft-Gault) 46.4 Glucose Level 232mg/dL (70-99) Calcium Level 8.0mg/dL (8.5-10.1) Phosphorus Level 1.1mg/dL (2.6-4.7) Magnesium Level 1.8mg/dL (1.8-2.4) Test 10/05/16 16:15 10/05/16 17:24 10/05/16 18:27 10/05/16 20:00 Glucose (Fingerstick) 186mg/dL (70-99) 156mg/dL (70-99) 127mg/dL (70-99) Sodium Level 135mmol/L (136-145) Potassium Level 4.2mmol/L (3.5-5.1) Chloride Level 106mmol/L (98-107) Carbon Dioxide Level 19mmol/L (21-32) Anion Gap 10 (6-14) Blood Urea Nitrogen 23mg/dL (8-26) Creatinine 1.5mg/dL (0.7-1.3) Estimated GFR (Cockcroft-Gault) 49.9 Glucose Level 252mg/dL (70-99) Calcium Level 8.0mg/dL (8.5-10.1) Phosphorus Level 2.6mg/dL (2.6-4.7) Magnesium Level 1.9mg/dL (1.8-2.4) Test 10/05/16 20:34 10/06/16 00:20 10/06/16 08:13 10/06/16 08:45 Glucose (Fingerstick) 259mg/dL (70-99) 237mg/dL (70-99) Sodium Level 138mmol/L (136-145) 140mmol/L (136-145) Potassium Level 4.2mmol/L (3.5-5.1) 3.9mmol/L (3.5-5.1) Chloride Level 106mmol/L (98-107) 106mmol/L (98-107) Carbon Dioxide Level 20mmol/L (21-32) 24mmol/L (21-32) Anion Gap 12 (6-14) 10 (6-14) Blood Urea Nitrogen 21mg/dL (8-26) 16mg/dL (8-26) Creatinine 1.4mg/dL (0.7-1.3) 1.2mg/dL (0.7-1.3) Estimated GFR (Cockcroft-Gault) 54.1 64.6 Glucose Level 272mg/dL (70-99) 275mg/dL (70-99) Calcium Level 8.2mg/dL (8.5-10.1) 8.6mg/dL (8.5-10.1) Phosphorus Level 2.6mg/dL (2.6-4.7) 1.4mg/dL (2.6-4.7) Magnesium Level 2.0mg/dL (1.8-2.4) 2.4mg/dL (1.8-2.4) White Blood Count 9.0x10^3/uL (4.0-11.0) Red Blood Count 3.96x10^6/uL (4.30-5.70) Hemoglobin 12.0g/dL (13.0-17.5) Hematocrit 35.6% (39.0-53.0) Mean Corpuscular Volume 90fL (79-100) Mean Corpuscular Hemoglobin 30pg (25-35) Mean Corpuscular Hemoglobin Concent 34g/dL (31-37) Red Cell Distribution Width 13.4% (11.5-14.5) Platelet Count 162x10^3/uL (140-400) Neutrophils (%) (Auto) 76% (31-73) Lymphocytes (%) (Auto) 15% (24-48) Monocytes (%) (Auto) 8% (0-9) Eosinophils (%) (Auto) 0% (0-3) Basophils (%) (Auto) 0% (0-3) Neutrophils # (Auto) 6.9x10^3uL (1.8-7.7) Lymphocytes # (Auto) 1.4x10^3/uL (1.0-4.8) Monocytes # (Auto) 0.7x10^3/uL (0.0-1.1) Eosinophils # (Auto) 0.0x10^3/uL (0.0-0.7) Basophils # (Auto) 0.0x10^3/uL (0.0-0.2) BUN/Creatinine Ratio 13 (6-20) Hemoglobin A1c 8.7% (4.8-5.6) Total Bilirubin 0.7mg/dL (0.2-1.0) Aspartate Amino Transf (AST/SGOT) 27U/L (15-37) Alanine Aminotransferase (ALT/SGPT) 38U/L (16-63) Alkaline Phosphatase 69U/L (46-116) Total Protein 6.2g/dL (6.4-8.2) Albumin 2.9g/dL (3.4-5.0) Albumin/Globulin Ratio 0.9 (1.0-1.7) Lipase 199U/L (73-393) Test 10/06/16 11:59 10/06/16 17:27 10/06/16 20:20 10/07/16 05:05 Glucose (Fingerstick) 277mg/dL (70-99) 203mg/dL (70-99) 337mg/dL (70-99) Sodium Level 144mmol/L (136-145) Potassium Level 3.5mmol/L (3.5-5.1) Chloride Level 110mmol/L (98-107) Carbon Dioxide Level 28mmol/L (21-32) Anion Gap 6 (6-14) Blood Urea Nitrogen 13mg/dL (8-26) Creatinine 0.9mg/dL (0.7-1.3) Estimated GFR (Cockcroft-Gault) 90.1 Glucose Level 196mg/dL (70-99) Calcium Level 8.5mg/dL (8.5-10.1) Phosphorus Level 2.5mg/dL (2.6-4.7) Magnesium Level 2.2mg/dL (1.8-2.4) Laboratory Tests Test 10/06/16 17:27 10/06/16 20:20 10/07/16 05:05 Glucose (Fingerstick) 203mg/dL (70-99) 337mg/dL (70-99) Sodium Level 144mmol/L (136-145) Potassium Level 3.5mmol/L (3.5-5.1) Chloride Level 110mmol/L (98-107) Carbon Dioxide Level 28mmol/L (21-32) Anion Gap 6 (6-14) Blood Urea Nitrogen 13mg/dL (8-26) Creatinine 0.9mg/dL (0.7-1.3) Estimated GFR (Cockcroft-Gault) 90.1 Glucose Level 196mg/dL (70-99) Calcium Level 8.5mg/dL (8.5-10.1) Phosphorus Level 2.5mg/dL (2.6-4.7) Magnesium Level 2.2mg/dL (1.8-2.4) Medications Current Medications Sodium Chloride (Iv Sodium Chloride 0.9% 1000ml Bag) 1,000 ml @ 1,000 mls/hr Q1H IV Last administered on 10/05/16 03:23; Start 10/05/16 at 03:15; Stop at 04:14; Status DC Ondansetron HCl (Zofran) 4 mg 1X ONCE IV Last administered on 10/05/16 03:22 ; Start 10/05/16 at 03:15; Stop 10/05/16 at 03:16; Status DC Famotidine (Pepcid) 20 mg 1X ONCE IVP Last administered on 10/05/16 03:22; Start 10/05/16 at 03:15; Stop 10/05/16 at 03:16; Status DC Morphine Sulfate 4 mg 1X ONCE IV Last administered on 10/05/16 03:23; Start 10/05/16 at 03:15; Stop 10/05/16 at 03:16; Status DC Calcium Gluconate 1000 mg 1,000 mg 1X ONCE IVP ; Start 10/05/16 at 04:15; Stop 10/05/16 at 05:44; Status DC Sodium Chloride 1,000 ml @ 1,000 mls/hr Q1H IV Last administered on 10/05/16 05:28; Start 10/05/16 at 04:00; Stop 10/05/16 at 04:07; Status DC Insulin Human Regular 150 unit/ Sodium Chloride 151.5 ml @ 0 mls/hr CONT PRN PRN IV PER PROTOCOL Last administered on 10/05/16 05:29; Start 10/05/16 at 04: 00 Potassium Chloride 100 ml @ 100 mls/hr PRN Q1HR PRN IV SEE COMMENTS; Start at 04:00 Potassium Chloride 100 ml @ 100 mls/hr PRN Q1HR PRN IV SEE COMMENTS; Start at 04:00 Potassium Chloride (KCl Premix 10meq) 100 ml @ 100 mls/hr PRN Q1HR PRN IV SEE COMMENTS; Start 10/05/16 at 04:00 Sodium Polystyrene Sulfonate (Kayexalate) 15 gm 1X ONCE PO ; Start 10/05/16 at 04:45; Stop 10/05/16 at 05:44; Status DC Ondansetron HCl (Zofran) 4 mg PRN Q8HRS PRN IV NAUSEA/VOMITING; Start 10/05/16 at 04:15; Stop 10/06/16 at 04:14; Status DC Morphine Sulfate 4 mg 4 mg PRN Q2HR PRN IV PAIN Last administered on 10/05/16 05:27; Start 10/05/16 at 04:15; Stop 10/06/16 at 04:14; Status DC Sodium Chloride (Iv Sodium Chloride 0.9% 1000ml Bag) 1,000 ml @ 250 mls/hr Q4H IV ; Start 10/05/16 at 04:30; Stop 10/05/16 at 06:02; Status DC Acetaminophen 650 mg 650 mg PRN Q4HRS PRN PO FEVER; Start 10/05/16 at 04:15; Stop 10/06/16 at 04:14; Status DC Sodium Bicarbonate 50 meq/Sodium Chloride 1,050 ml @ 250 mls/hr Q4H12M IV Last administered on 10/05/16 06:15; Start 10/05/16 at 06:15; Stop 10/05/16 at 09:01; Status DC Sodium Chloride 1,000 ml @ 250 mls/hr Q4H IV Last administered on 10/05/16 11 :29; Start 10/05/16 at 07:51; Stop 10/06/16 at 15:24; Status DC Sodium Chloride 1,000 ml @ 250 mls/hr Q4H PRN IV SEE COMMENTS; Start 10/05/16 at 08:00; Stop 10/06/16 at 15:24; Status DC Dextrose/Sodium Chloride 1,000 ml @ 250 mls/hr Q4H IV ; Start 10/05/16 at 07:51 ; Stop 10/05/16 at 07:54; Status DC Dextrose/Sodium Chloride 1,000 ml @ 250 mls/hr Q4H PRN IV SEE COMMENTS; Start 10/05/16 at 07:53 Sodium Bicarbonate/ Dextrose 1,100 ml @ 250 mls/hr CONT PRN IV . Last administered on 10/05/16 11:28; Start 10/05/16 at 09:00 Insulin Detemir (Levemir) 30 units QHS SQ Last administered on 10/06/16 20:24 ; Start 10/05/16 at 21:00 Insulin Aspart (Novolog) 0-9 UNITS TIDWMEALS SQ Last administered on 10/07/16 11:57; Start 10/05/16 at 18:00 Dextrose 12.5 gm 12.5 gm PRN Q15MIN PRN IV SEE COMMENTS; Start 10/05/16 at 17: 30 Sodium Phosphate 20 mmol/Dextrose 256.6667 ml @ 62.5 mls/hr 1X PRN PRN IV SEE COMMENTS; Start 10/05/16 at 18:00 Sodium Phosphate 20 mmol/Dextrose 256.6667 ml @ 62.5 mls/hr 1X ONCE IV Last administered on 10/05/16 17:46; Start 10/05/16 at 18:00; Stop 10/05/16 at 22:06 ; Status DC Dextrose/Sodium Chloride (Iv D5% - NS) 1,000 ml @ 100 mls/hr Q10H PRN IV SEE COMMENTS Last administered on 10/05/16 17:59; Start 10/05/16 at 18:00 Enoxaparin Sodium (Lovenox 40mg Syringe) 40 mg DAILY16 SQ Last administered on 10/06/16 17:26; Start 10/06/16 at 16:00 Pantoprazole Sodium 40 mg 40 mg DAILYAC PO Last administered on 10/07/16 09:07 ; Start 10/06/16 at 10:00 Potassium Phosphate 13.6 mmol/Sodium Chloride 104.5333 ml @ 52.267 m... Q2H IV Last administered on 10/06/16 15:04; Start 10/06/16 at 12:00; Stop 10/06/16 at 15:59; Status DC Sodium Chloride (Iv Sodium Chloride 0.45%) 1,000 ml @ 75 mls/hr [id number] IV Last administered on 10/07/16 04:00; Start 10/06/16 at 15:30 Active Scripts Active Reported Novolog Flexpen (Insulin Aspart) 100 Unit/1 Ml Insuln.pen 1 Unit SQ PRN BFRMEAL PRN Lantus Solostar (Insulin Glargine,Hum.rec.anlog) 100 Unit/1 Ml Insuln.pen 38 Unit SQ QHS Vitals/I & O Vital Sign - Last 24 Hours 10/06/16 10/06/16 10/06/16 10/06/16 13:00 15:00 17:11 19:00 Temp 98.4 98.4 97.8 98.5 98.4 98.4 97.8 98.5 Pulse 71 71 104 75 Resp 20 20 24 20 B/P 144/88 144/88 124/78 Pulse Ox 98 98 97 97 O2 Delivery Room Air Room Air Room Air 10/06/16 10/06/16 10/07/16 10/07/16 20:00 22:38 08:00 08:53 Temp 98.8 97.5 98.8 97.5 Pulse 73 61 Resp 20 16 B/P 110/82 134/78 Pulse Ox 96 97 O2 Delivery Room Air Room Air Room Air Room Air 10/07/16 11:00 Temp 97.8 97.8 Pulse 60 Resp 16 B/P 124/83 Pulse Ox 98 O2 Delivery Room Air Intake and Output 10/06/16 10/06/16 10/07/16 15:00 23:00 07:00 Intake Total 400 ml 470 ml 800 ml Output Total 1300 ml Balance -900 ml 470 ml 800 ml GIBRAN VARGAS III DO Oct 07, 2016 12:52
[2016-10-07] MEDS ORDERED: INSULIN ASPART 300 UNITS/3 ML INSULN.PEN SQ ONE (15:00)
--- NOTE | 2016-10-14 13:36 | DS ---
DATE OF DISCHARGE: 10/07/2016 ADMISSION DIAGNOSES: Diabetic ketoacidosis, pancreatitis and hyperkalemia. DISCHARGE DIAGNOSES: Resolving diabetic ketoacidosis, resolving pancreatitis, resolving hyperkalemia. HOSPITAL COURSE: The patient is a pleasant 46-year-old male who presented with DKA and pancreatitis and hyperkalemia. He was admitted. We gave him IV fluids, IV insulin. We gave him pain meds, his symptoms resolved. His sugars resolved. We discharged to home with close outpatient followup. DISPOSITION: Home. ACTIVITY: As tolerated. DIET: 1800-calorie ADA. PROGNOSIS: Good. TOTAL TIME: 33 minutes. GIBRAN VARGAS DO DR: NEMESIO/rhett JOB#: [id number] / [id number]
== END 2016-10-07 15:00 | disposition home or self-care (01) | DRG 438 ==
LOC: ER 02:31 → 1 WEST ICU 04:11 → 5 NORTH 10-06 11:01
PROVIDERS: ADMIT Internal Medicine; ATTEND Internal Medicine
DX: K85.90 Acute pancreatitis without necrosis or infection, unspecified (principal); E10.10 Type 1 diabetes mellitus with ketoacidosis without coma; N17.9 Acute kidney failure, unspecified; E87.5 Hyperkalemia; I10 Essential (primary) hypertension; F10.10 Alcohol abuse, uncomplicated; E86.0 Dehydration; E83.39 Other disorders of phosphorus metabolism; K59.00 Constipation, unspecified; Z79.4 Long term (current) use of insulin; Z83.3 Family history of diabetes mellitus; Z88.2 Allergy status to sulfonamides
CPT/HCPCS: 36415; 36600; 71101; 80048; 80053; 82803; 82805; 82947; 83036; 83690; 83735; 84100; 85007; 85027; 87641; 93005; 96361; 96374; 96375; J1650; J1815; J2270; J2405; J7030; J7042; S0028; 99291-25